=== PATIENT | male | born 1945 | race Caucasian/White ===

== ENCOUNTER 2017-08-27 12:54 | Outpatient (CLI) | payer MEDICARE ==
--- NOTE | 2017-08-27 13:45 | RAD ---
TWO VIEWS OF THE CHEST: COMPARISON: COMPARISON: 07/14/17. History Dyspnea. FINDINGS: Two views of the chest show a normal-size cardiomediastinal silhouette. The patient is status post sternotomy. There is a calcified granuloma projecting over the right lower lobe. There is no evide nce of consolidation or pleural effusion. There are degenerative changes in the spine. Hardware is seen in the cervical spine. IMPRESSION: No evidence of acute cardiopulmonary disease. POS: [facility]
== END 2017-08-27 12:55 | disposition home or self-care (01) ==
LOC: RAD 12:54
PROVIDERS: ATTEND Internal Medicine Critical Care Medicine
DX: R06.00 Dyspnea, unspecified (principal)
CPT/HCPCS: 71020

== ENCOUNTER 2017-11-12 07:25 | Outpatient (CLI) | payer MEDICARE ==
--- NOTE | 2017-11-12 09:08 | CT ---
CT CHEST WITHOUT CONTRAST: HISTORY: Pneumonia. FINDINGS: Comparison is made with the exam of 07/14/17. Absence of IV contrast reduces the sensitivity of the exam for evaluation of mediastinal, hilar, and vascular structures. Vascular calcifications are again seen without evidence of aneurysmal dilatation of the abdominal aor ta. Evidence of old granulomatous disease is redemonstrated in the chest and upper abdomen. There i s residual small reticulonodular infiltrate in the left upper lobe compared to the previous study. T he patchy areas of airspace disease in the right lower lobe have resolved. There are small focal are as of reticulonodular infiltrates in the lower lobes on either side. No pleural or pericardial effus ions are seen. There are degenerative changes in the spine. Partially rim-calcified capsular region of the right kidney and coarse calcification of the left kidn ey are again seen. IMPRESSION: Patchy focal reticulonodular infiltrates as discussed above. POS: [facility]
== END 2017-11-12 07:26 | disposition home or self-care (01) ==
LOC: CT 07:25
PROVIDERS: ATTEND Internal Medicine Critical Care Medicine
DX: J18.9 Pneumonia, unspecified organism (principal); J44.9 Chronic obstructive pulmonary disease, unspecified; R91.8 Other nonspecific abnormal finding of lung field
CPT/HCPCS: 71250

== ENCOUNTER 2018-08-06 09:02 | Outpatient (CLI) | payer MEDICARE ==
--- NOTE | 2018-08-06 10:33 | RAD ---
CHEST PA AND LATERAL: Date: 08/06/18 HISTORY: 72-year-old male with history of dyspnea. COMPARISON: 08/27/17. FINDINGS: Heart size is normal. Old granulomatous disease. Minimal stable increased markings bilaterally. Posto p midline sternotomy. IMPRESSION: Stable chronic lung changes. Atherosclerosis of aorta. Postop midline sternotomy. POS: [facility]
== END 2018-08-06 09:03 | disposition home or self-care (01) ==
LOC: RAD 09:02
PROVIDERS: ATTEND Internal Medicine Critical Care Medicine
DX: R06.00 Dyspnea, unspecified (principal); I70.0 Atherosclerosis of aorta; Z98.890 Other specified postprocedural states
CPT/HCPCS: 71046

== ENCOUNTER 2019-03-30 07:20 | Outpatient (CLI) | payer MEDICARE ==
--- NOTE | 2019-03-30 09:18 | CT ---
CT arteriogram abdomen and pelvis with IV contrast and 3-D imaging CT arteriogram runoff bilateral lower extremity with IV contrast and 3-D imaging HISTORY: Vascular disease. Claudication. FINDINGS: At the posterior aspect of the superior segment right lower lobe immediately adjacent to th e pleural surface is a small nonspecific focus of nonspecific peripheral groundglass opacity. Calcified granulomata throughout the spleen and liver. Very small hiatal hernia. Lobular calcificatio n at the anterior aspect of the interpolar left kidney may be cortical or a nonobstructing collecting system calculus. Degenerative changes throughout the lumbar spine. Lentiform fluid collect ion with thick peripheral calcification at the posterior aspect of the right kidney measures up to 4.2 cm and is likely related to a remote resolving hematoma. Prominent calcification throughout the arterial structures. Aorta and right iliac artery are patent. Dense calcification with greater than 50% stenosis at the proximal aspect left common iliac artery. Mesenteric arteries are patent. Calcification results in approximately 50% stenosis at the proximal a spect of each renal artery. Right: Scattered calcification. Stents within the distal femoral and popliteal arteries. There are 2 foci of moderate to severe stenosis at the proximal popliteal artery. Dense calcification at the level of the ankle joint, with apparent loss of luminal flow. Dense calcification within the arteries of the lower leg obscures the lumen. Left: Dense calcification with high grade stenosis of the common femoral artery at the level of the h umeral head at [address]. High-grade stenosis at the origin of the femoral artery with multifocal areas of significant stenosis at the proximal and distal aspects of the femoral artery. Ca lcification with multifocal high-grade stenoses of the popliteal artery. Dense calcification with obscuration or loss of luminal flow at the level of the knee joint. The dense calcification of the ar teries of the lower leg obscures the lumen. IMPRESSION: Severe atherosclerosis, with significant stenoses involving the left common iliac artery and throughout the arterial structures of each leg. Mild stenosis of the left renal artery.
[2019-03-30] MEDS ORDERED: ISOVUE-370 76%-LOCM 1 ML ONE (11:43)
== END 2019-03-30 07:21 | disposition home or self-care (01) ==
LOC: BICCT 07:20
PROVIDERS: ATTEND Thoracic Surgery (Cardiothoracic Vascular Surgery)
DX: I70.213 Atherosclerosis of native arteries of extremities with intermittent claudication, bilateral legs (principal); I70.1 Atherosclerosis of renal artery; I70.203 Unspecified atherosclerosis of native arteries of extremities, bilateral legs
CPT/HCPCS: 75635; 82565; Q9966

== ENCOUNTER 2019-04-08 08:55 | Day surgery (SDC) | payer MEDICARE ==
[2019-04-07 11:39] VITALS: BMI 26.9
[2019-04-08 09:34] LABS: #Eosinphils 0.1 thou/uL (0.0-0.7); #Lymphocytes 1.6 thou/uL (1.20-3.40); #Monocytes 0.8 thou/uL (0.11-0.59); #Neutrophils 5.6 thou/uL (1.40-6.50); %Basophils 0.3 % (0.0-1.0); %Eosinophils 1.6 % (0.0-10.0); %Lymphocytes 19.9 % (21.0-51.0); %Monocytes 9.7 % (0.0-10.0); %Neutrophils 68.5 % (42.0-75.0); Hemoglobin 10.3 g/dL (14.0-18.0); Mean Corpuscular HGB CONC 31.2 g/dL (32.0-36.0); Mean Corpuscular Volume 76.9 fL (78.0-98.0); Mean Platelet Volume 8.6 fL (7.4-10.4); Platelet Count 224 thou/uL (130-400); RBC Distribution Width 17.3 % (11.5-14.5); Red Blood Cell (RBC) Count 4.28 mill/uL (4.70-6.10); White Blood Cell (WBC) Count 8.2 thou/uL (4.8-10.8)
[2019-04-08 10:07] LABS: Anion Gap 14 mmol/L (10-20); BUN (Urea Nitrogen) 10 mg/dL (8.4-25.7); Calc. Creatinine Clearance 78 mL/min (70-130); Calcium 9.2 mg/dL (7.8-10.44); Carbon Dioxide 24 mmol/L (23-31); Chloride 102 mmol/L (98-107); Estimated GFR-MDRD 66; Glucose 94 mg/dL (83-110); Potassium 4.4 mmol/L (3.5-5.1); Sodium 136 mmol/L (136-145)
[2019-04-08] MEDS ORDERED: Iopamidol 370 76% 50 ML VIAL FS ONE (10:33)
--- NOTE | 2019-04-11 08:53 | OP ---
DATE OF PROCEDURE: 04/08/2019 PREOPERATIVE DIAGNOSIS: Peripheral arterial disease with severe bilateral claudication. PROCEDURE PERFORMED: Aortogram bilateral lower extremity runoff. ANESTHESIA: 1% lidocaine, local. No sedation. CONTRAST: 37 mL. FLUOROSCOPY: 4.2 minutes. FINDINGS: The patient's right common femoral artery and deep and superficial femoral artery origins were rather unremarkable, but the superficial femoral artery had multiple subtotal occlusions and then the popliteal artery was occluded just at the level of the knee articulation. Very late and faintly and an anterior tibial fill that had ostial disease as well. The anterior tibial occluded above the knee and only collaterals appeared to go to the foot. The anterior tibial artery as well as his other arteries were heavily calcified throughout. The aortoiliac system was heavily calcified and although there was a suspicion of a left common iliac artery stenosis about 3 cm from its origination, this was difficult to isolate despite multiple projections. The left common femoral artery had heavy calcification with intraluminal calcification and appeared to have a severe stenosis. The superficial femoral artery was severely stenotic at its origin. The popliteal artery had severe calcific and endoluminal disease to the level just above the knee joint and then was subtotally or totally occluded at the knee. There was bulky calcification within the distal popliteal artery prior to the takeoff of the anterior tibial and tibioperoneal trunk. The posterior tibial was occluded and heavily calcified. Peroneal artery filled slowly and to a limited degree and the anterior tibial artery visualized to the distal calf, but due to slow flow could not really be appreciated to the level of the ankle. DESCRIPTION OF PROCEDURE: After prepping and draping, the right groin was infiltrated with lidocaine and using ultrasound, the common femoral artery was punctured without difficulty and a 5-[place] dilator and sheath were placed. Runoff of the right leg was obtained through that sheath. Following which, a wire was placed and the Contra catheter advanced into the aorta where multiple projections of the ileal common femoral system was obtained. Following this, a Glidewire was passed down into the left profunda and a glide catheter was then advanced into the proximal common femoral artery on the left, where runoff of the left leg was obtained and the catheters were then pulled. Job ID: [id number]
== END 2019-04-08 16:02 | disposition home or self-care (01) ==
LOC: CCL 08:55
PROVIDERS: ATTEND Thoracic Surgery (Cardiothoracic Vascular Surgery)
PROC: B41D1ZZ Fluoroscopy of Aorta and Bilateral Lower Extremity Arteries using Low Osmolar Contrast (ICD-10-PCS; principal; 2019-04-08)
DX: I70.213 Atherosclerosis of native arteries of extremities with intermittent claudication, bilateral legs (principal); I25.10 Atherosclerotic heart disease of native coronary artery without angina pectoris; I10 Essential (primary) hypertension; I48.91 Unspecified atrial fibrillation; E78.5 Hyperlipidemia, unspecified; Z87.891 Personal history of nicotine dependence; Z79.01 Long term (current) use of anticoagulants; Z79.51 Long term (current) use of inhaled steroids; Z79.899 Other long term (current) drug therapy; Z90.3 Acquired absence of stomach [part of]; Z95.5 Presence of coronary angioplasty implant and graft; Z95.828 Presence of other vascular implants and grafts; Z98.890 Other specified postprocedural states
CPT/HCPCS: 75716; 76942; 80048; 85025; C1725; C1769; C1887; J1644; Q9967

== ENCOUNTER 2019-08-01 09:31 | Outpatient (CLI) | payer MEDICARE ==
--- NOTE | 2019-08-01 10:15 | RAD ---
CHEST TWO VIEWS: HISTORY: Dyspnea. COMPARISON: Radiograph from 2018. FINDINGS: There is a calcified granuloma in the right middle lobe. The lungs are clear. No pneumothorax. No effusion. Nerve space consolidation. Multiple midline sternotomy wires. No acute osseous abnormality. IMPRESSION: No acute intrathoracic abnormality. POS: [facility]
== END 2019-08-01 09:32 | disposition home or self-care (01) ==
LOC: RAD 09:31
PROVIDERS: ATTEND Internal Medicine Critical Care Medicine
DX: R06.00 Dyspnea, unspecified (principal)
CPT/HCPCS: 71046

== ENCOUNTER 2020-10-17 08:18 | Outpatient (CLI) | payer MEDICARE ==
--- NOTE | 2020-10-17 08:36 | RAD ---
XR Chest Pa Lat STANDARD HISTORY: Dyspnea COMPARISON: 08/01/2019 FINDINGS: The heart size is normal. Changes of median sternotomy are again seen. A small calcified gr anuloma in the right lung is redemonstrated. The lungs are well expanded without focal areas of consolidation, pneumothorax or pleural effusions. IMPRESSION: No radiographic evidence of acute cardiopulmonary process.
== END 2020-10-17 08:19 | disposition home or self-care (01) ==
LOC: BICRAD 08:18
PROVIDERS: ATTEND Internal Medicine Critical Care Medicine
DX: R06.00 Dyspnea, unspecified (principal)
CPT/HCPCS: 71046

== ENCOUNTER 2021-01-01 13:51 | Day surgery (SDC) | payer MEDICARE ==
[2020-12-31 12:42] VITALS: BMI 26.4
[~2021-01-01 13:51] MED LIST: Dexamethasone 20 MG/5 ML VIAL ONE; Ketorolac Tromethamine 30 MG/ML VIAL ONE; Lidocaine 1% PF 5 ML VIAL ONE; Ondansetron PF 4 MG/2 ML Vial ONE; PHENYLEPHRINE-NS 100 MCG/ML 10 ML SYRINGE ONE; PROPOFOL 200 MG/20 ML VIAL ONE
[2021-01-01] MEDS ORDERED: Levofloxacin 500 mg/D5W 100 ml Premix Bag ONE (15:10)
[2021-01-01] MEDS ORDERED: Iothalamate Meglumine 60% 50 ML VIAL FS ONE (15:13)
[2021-01-01] MEDS ORDERED: Phenylephrine 10 MG/ML VIAL ONE (15:13)
[2021-01-01] MEDS ORDERED: Fentanyl 100 MCG/2 ML VIAL ONE (15:13)
--- NOTE | 2021-01-01 16:55 | RAD ---
EXAM: Retrograde IVP HISTORY: Left ureteral stent placement for kidney stones COMPARISON: None FINDINGS/IMPRESSION: Limited intraoperative fluoroscopic views of the retrograde IVP were submitted f or interpretation. A wire is initially seen in the left renal collecting system. Contrast was administered which shows mild enlargement of the left ureter and renal collecting system. A lithotrip sy device is eventually placed. This is followed by placement of a double-J ureteral stent which appears in good position.
--- NOTE | 2021-01-02 08:43 | OP ---
DATE OF PROCEDURE: 01/01/2021 PREOPERATIVE DIAGNOSIS: Left ureteral stone. POSTOPERATIVE DIAGNOSIS: Left ureteral stone. PROCEDURES PERFORMED: Left ureteroscopy, laser lithotripsy, basket extraction, retrograde pyelogram, 6 x 28 double-J ureteral stent placement. ANESTHESIA: General. COMPLICATIONS: None. ESTIMATED BLOOD LOSS: Minimal. SPECIMENS: Urine for culture and left ureteral stone fragments. DESCRIPTION OF PROCEDURE: After informed consent, the patient was taken to the operating room, transferred to the table under his own power. Anesthesia was established. A time-out was performed, showing the correct patient, site, and procedure. Preoperative antibiotics were administered. He was prepped and draped in the lithotomy position. I began by inserting the semi-rigid ureteroscope through the urethra into the bladder. The left ureter was cannulated with a wire, which was passed up to the level of the renal pelvis. The stone was seen on fluoroscopy in the mid to proximal ureter. The scope was withdrawn and reinserted alongside the wire until the stone was encountered in the mid to proximal ureter. A retrograde pyelogram was performed at this point showing hydroureter and hydronephrosis beyond the stone. A 365 micron laser fiber was used to begin treating the stone. Once the stone became dislodged, it quickly migrated back into the renal pelvis. I then passed a 45-cm access sheath over the wire into the proximal ureter under fluoroscopic guidance and then switched to the flexible ureteroscope, which was passed into the renal pelvis. He had a significant amount of old blood clot in the renal pelvis making visualization very difficult. I was able to identify the stone and treated this with a dusting technique as I figured basketing would be very difficult. Once I treated the stone to the point that there were no clinically significant fragments easily visible, I then passed the basket in and retrieved a few small stones samples. A culture was taken directly from the left renal pelvis to ensure that we have adequate antibiotic therapy should he develop any problems postoperatively. I was unable to identify any further clinically significant stone fragments since the renal pelvis was filled with contrast and the scope and access sheath withdrawn leaving a wire in place. A 6 x 28 double-J ureteral stent was passed over the wire with a curl in the kidney and curl in the bladder. Strings were not left attached as I intend to perform a CT scan in 2 weeks with stent removal afterwards as long as there were no residual stone fragments requiring further treatment. Job ID: [id number]
[2021-01-09 18:13] LABS: CA Oxalate Dihydrate 20 % (.); CA Oxalate Monohydrate 80 % (.); Color Brown (.); Stone Weight 3 mg (.)
== END 2021-01-01 17:51 | disposition home or self-care (01) ==
LOC: SDC 13:51
PROVIDERS: ATTEND Urology
PROC: 0TC48ZZ Extirpation of Matter from Left Kidney Pelvis, Via Natural or Artificial Opening Endoscopic (ICD-10-PCS; principal; 2021-01-01)
PROC: 0T778DZ Dilation of Left Ureter with Intraluminal Device, Via Natural or Artificial Opening Endoscopic (ICD-10-PCS; 2021-01-01)
DX: N13.2 Hydronephrosis with renal and ureteral calculous obstruction (principal); N30.01 Acute cystitis with hematuria; I10 Essential (primary) hypertension; E78.5 Hyperlipidemia, unspecified; I25.2 Old myocardial infarction; Z87.891 Personal history of nicotine dependence; Z79.01 Long term (current) use of anticoagulants; Z79.82 Long term (current) use of aspirin; Z79.899 Other long term (current) drug therapy; Z88.8 Allergy status to other drugs, medicaments and biological substances; Z95.1 Presence of aortocoronary bypass graft
CPT/HCPCS: 74420; 82365; 87086; 88300; J1100; J1885; J1956; J2370; J2405; J2704; J3010

== ENCOUNTER 2021-01-15 08:39 | Outpatient (CLI) | payer MEDICARE | END 2021-01-15 08:40 | disposition home or self-care (01) | LOC: BICCT 08:39 | PROVIDERS: ATTEND Urology | DX: N13.2 Hydronephrosis with renal and ureteral calculous obstruction (principal); Z96.0 Presence of urogenital implants | CPT/HCPCS: 74176 ==

== ENCOUNTER 2021-02-11 10:05 | Outpatient (CLI) | payer MEDICARE | END 2021-02-11 10:06 | disposition home or self-care (01) | LOC: BICULT 10:05 | PROVIDERS: ATTEND Urology | DX: N13.2 Hydronephrosis with renal and ureteral calculous obstruction (principal) | CPT/HCPCS: 76770 ==

== ENCOUNTER 2021-04-17 08:36 | Outpatient (CLI) | payer MEDICARE | END 2021-04-17 08:37 | disposition home or self-care (01) | LOC: BICRAD 08:36 | PROVIDERS: ATTEND Internal Medicine Critical Care Medicine | DX: R06.00 Dyspnea, unspecified (principal) | CPT/HCPCS: 71046 ==